=== PATIENT | female | born 1990 | race Caucasian/White ===

== ENCOUNTER 2016-07-19 16:56 | Inpatient (IN) | payer OTHER ==
[~2016-07-19] VITALS: Ht 162.6 cm; Wt 95.0 kg
[2016-07-19] VITALS (9 sets, daily range): BP systolic 127–154; BP diastolic 77–94
[2016-07-19] MEDS ORDERED: LABETALOL HCL100 MG PO (18:05)
[2016-07-19 19:08] LABS: EOSINOPHIL (%) 0.4 % (0-5); HEMATOCRIT 37.2 % (36.0-46.0); IMMATURE GRANULOCYTE (%) 0.2 % (0.0-0.7); LYMPHOCYTE COUNT 2.3 K/uL (1.0-2.8); MCH 30.1 PG (29.0-34.0); MCHC 34.7 G/DL (30.0-36.0); MCV 86.9 FL (83-99); MEAN PLAT.VOLUME 9.5 uM^3 (9.5-12.4); MONOCYTE (%) 10.7 % (3-12); NEUTROPHIL (%) 62.6 % (45-76); NEUTROPHIL COUNT 5.6 K/uL (1.8-6.4); PLATELET COUNT 158 K/uL (156-360); RBC DIS.WIDTH-CV 12.7 % (11.8-14.6); RBC DIS.WIDTH-SD 40.3 % (39-53); RED BLOOD COUNT 4.28 M/uL (3.80-5.20)
[2016-07-20] VITALS (29 sets, daily range): BP systolic 124–152; BP diastolic 64–101
[2016-07-20] MEDS ORDERED: IBUPROFEN800 MG PO (21:22)
[2016-07-21 03:05] VITALS: BP 114/69
[2016-07-21 12:00] VITALS: BP 132/78
[2016-07-21 16:19] VITALS: BP 140/86
[2016-07-21 20:09] VITALS: BP 139/93
[2016-07-21 23:25] VITALS: BP 131/77
[2016-07-22 03:00] VITALS: BP 163/97
[2016-07-22 03:30] VITALS: BP 135/87
[2016-07-22 08:51] VITALS: BP 150/83
== END 2016-07-22 12:20 | disposition home or self-care (01) | DRG 774 ==
LOC: LDRP-OP 16:56 → 2WEST 16:57 → LDRP-OP 08-27 22:42
PROVIDERS: Nurse Practitioner
DX: O70.1 Second degree perineal laceration during delivery (principal); O10.92 Unspecified pre-existing hypertension complicating childbirth; O99.824 Streptococcus B carrier state complicating childbirth; Z3A.39 39 weeks gestation of pregnancy; Z37.0 Single live birth
CPT/HCPCS: 85025; C1755; G0378; J2540; J2795; J3010; J7120

== ENCOUNTER 2017-03-19 13:08 | Emergency (ER) | payer OTHER ==
[~2017-03-19] VITALS: Ht 162.6 cm; Wt 83.0 kg
[~2017-03-19 13:08] MED LIST: IBUPROFEN800 MG PO; LABETALOL HCL100 MG PO
[2017-03-19 15:01] LABS: ADD MIUA? NO; BILIRUBIN NEGATIVE; BLOOD NEGATIVE; COLOR STRAW ((YELLOW)); GLUCOSE (STRIP) NEGATIVE; INTERNAL CONTROL VALID? YES; KETONES NEGATIVE; LEUKOCYTES NEGATIVE; NITRITE NEGATIVE; PROTEIN (STRIP) NEGATIVE; SPECIFIC GRAVITY 1.008 (1.000-1.030); UCUL ADDED? NO; UROBILINOGEN 0.2 MG/DL (0.2-1.0)
[2017-03-19 16:04] VITALS: BP 131/99
== END 2017-03-19 16:16 | disposition home or self-care (01) ==
LOC: EME 13:08
PROVIDERS: Emergency Medicine
DX: R42 Dizziness and giddiness (principal); R53.1 Weakness; R51 Headache; F17.200 Nicotine dependence, unspecified, uncomplicated
CPT/HCPCS: 81003; 84703; 93005; 99281; 99284; J1200; J2765